=== PATIENT | female | born 1970 | race American Indian/Alaskan Native ===

== ENCOUNTER 2018-07-22 17:55 | Emergency (ER) | payer OTHER ==
[2018-07-22 18:03] VITALS: BP 127/85
--- NOTE | 2018-07-22 18:35 | EDM.PDOCBH ---
ED HPI GENERAL MEDICAL PROBLEM - General Chief Complaint: Behavioral/Psych Stated Complaint: anxiety and does not feel good Time Seen by Provider: 07/22/18 18:05 Source of Information: Reports: Patient History Limitations: Reports: No Limitations - History of Present Illness INITIAL COMMENTS - FREE TEXT/NARRATIVE: Jessica is a 48 year old female who presents to the ED with c/o anxiety and refill of her medications. She reports she is on Xanax, clonazepam, and ambien and she ran out of her medications. She reports she does not have a primary care provider and she is unsure of when/who filled her last refill. She reports she has been dealing with two of her sons using drugs and she is letting them live with her. She reports due to this stress her and her have been fighting more and she has had increased stress. She reports because of all this stress she is unable to sleep at night and needs her sleeping pills. She was just in the clinic with her son, who was seen by me for a medication refill as well. Her son tested positive for methamphetamines. She reported in the clinic she needed a refill of her diabetic medications. She was advised to follow up in clinic on Wednesday. She then presented to the ED and I also happen to be preparation room manager. - Related Data Allergies Allergy/AdvReac Type Severity Reaction Status Date / Time ketorolac [From Toradol] Allergy Itching Verified 07/22/18 17:58 Home Meds: Home Meds ALPRAZolam [Xanax] 1 mg PO BID PRN 04/14/17 [History] Gabapentin [Neurontin] 400 mg PO BID 04/14/17 [History] Lisinopril 20 mg PO DAILY 04/14/17 [History] PARoxetine HCl [Paxil] 40 mg PO DAILY 04/14/17 [History] Zolpidem Tartrate [Ambien] 5 mg PO BEDTIME 04/14/17 [History] metFORMIN [Glucophage XR] 1,000 mg PO DAILY 04/14/17 [History] Past Medical History Cardiovascular History: Reports: Hypertension Respiratory History: Reports: None Genitourinary History: Reports: None 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: Musculoskeletal History: Reports: Other (See Below) Other Musculoskeletal History: chronic pain Neurological History: Reports: None Psychiatric History: Reports: Anxiety, Other (See Below) Other Psychiatric History: insomnia Endocrine/Metabolic History: Reports: Diabetes, Type II Hematologic History: Reports: None Immunologic History: Reports: None Oncologic (Cancer) History: Reports: None Dermatologic History: Reports: None - Infectious Disease History Infectious Disease History: Reports: Chicken Pox - Past Surgical History HEENT Surgical History: Reports: Other (See Below) Other HEENT Surgeries/Procedures: dental surgery Respiratory Surgical History: Reports: None GI Surgical History: Reports: Cholecystectomy Female Surgical History: Reports: Section Neurological Surgical History: Reports: None Musculoskeletal Surgical History: Reports: None Dermatological Surgical History: Reports: None Social & Family History - Family History Family Medical History: Noncontributory - Tobacco Use Smoking Status *Q: Never Smoker Second Hand Smoke Exposure: No - Caffeine Use Caffeine Use: Reports: Tea ED ROS GENERAL - Review of Systems Review Of Systems: ROS reveals no pertinent complaints other than HPI. ED EXAM, BEHAVIORAL HEALTH - Physical Exam Exam: See Below Exam Limited By: No Limitations General Appearance: Alert, WD/WN, No Apparent Distress Neurological: Alert, Normal Mood/Affect, CN II-XII Intact, Normal Cognition, Normal Gait, No Motor/Sensory Deficits, Oriented x 3 COURSE, BEHAVIORAL HEALTH COMP - Course Vital Signs: Last Vital Signs Temp 97.7 F 07/22/18 18:00 Pulse 124 H 07/22/18 18:00 Resp 20 07/22/18 18:00 BP 127/85 07/22/18 18:00 Pulse Ox 98 07/22/18 18:00 Re-Assessment/Re-Exam: Patient's [place] Prescription Drug Monitoring Report was pulled revealing that she filled both her Ambien (#14 tab) and clonazepam (#56 tab) yesterday 07/21/2018 from a provider at [facility]. She has no evidence of Xanax prescriptions in the past year as she told myself and nursing staff. When this was discussed with patient, that she should have these medications, she goes on to say that her son must've stolen them. I discussed with the patient that I would not provide her with any refills and she needed to follow up with a PCP or establish care with a PCP so that she only has only prescriber filling these for her. Discussed that it is her responsibility to have possession of her medications or keep them locked so they cannot be stolen. She verbalized understanding and will follow up with a PCP Wednesday. Departure - Departure Time of Disposition: 18:32 Disposition: Home, Self-Care 01 Condition: Good Clinical Impression: Drug-seeking behavior, Anxiety - Discharge Information *PRESCRIPTION DRUG MONITORING PROGRAM REVIEWED*: Yes *COPY OF PRESCRIPTION DRUG MONITORING REPORT IN PATIENT IVON: Yes Instructions: Generalized Anxiety Disorder, Adult Referrals: Mamie King NP [Primary Care Provider] - Forms: ED Department Discharge Additional Instructions: Discussed that ER is not spot for chronic disease management Discussed Prescription Drug Monitoring program results with patient. Patient refilled Ambien and clonazepam yesterday. These medications are the responsibility of the patient and no refills will be authorized for loss/ stolen. Recommend patient establish care with primary care provider and follow up for both anxiety and diabetes management.
== END 2018-07-22 18:45 | disposition home or self-care (01) ==
LOC: CC.ED 17:55
DX: Z76.5 Malingerer [conscious simulation] (principal); F41.9 Anxiety disorder, unspecified; I10 Essential (primary) hypertension; E11.9 Type 2 diabetes mellitus without complications; Z79.84 Long term (current) use of oral hypoglycemic drugs; Z79.899 Other long term (current) drug therapy
CPT/HCPCS: 99283